=== PATIENT | male | born 1985 | race Asian ===

== ENCOUNTER → 2017-03-26 | Outpatient (CLI) | payer OTHER, MEDICAID ==
--- NOTE | 2017-03-26 11:44 | NOWCEV ---
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 At the time he underwent a fusion from T2-L1 with barb placement. 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 This has led to issues with B medial epicondylitis from continuous self propulsion and lifting his chair into his car , as well as L shoulder pain. He reports that his elbow pain can reach as high as an 8/10 and limits his ability to use his UEs to lift or self propel. He also experiences L back pain from his current seating system. He has to take Percocet to manage the pain to allow for continued function. Doris's current ultra light weight MWC is 5 years old and his current custom molded seating system is 3 years old and both are showing age related deterioration from constant daily use. He was referred to this clinic by his doctor to have recommendations made for the most medically appropriate ultra light weight MWC to replace his current chair. Functional Mobility - Doris is unable to stand or ambulate even with an AD due to his complete T5 paraplegia. Doris is independent with self propulsion of his ultralight weight MWC with custom molded seating to access all MRADLs in the home and to attend work and school in the community on level and unlevel surfaces. He does report increased L shoulder pain with self propelling his chair up inclines, and lateral epicondylitis in both elbows makes it difficult to cheese packer the rims on his wheels to self propel. He reports that his L shoulder frequently pops and is painful when self propelling up hill or up ramps. Doris is independent with squat pivot transfers to/from his MW. He manages is LEs with his UEs. He is able to transition from sit to/from supine via long sit, but is LEs go into significant spasm with the transition and it takes several minutes for the spasms to stop. Any movement causes to legs to go back into spasm. Doris can independently transfer to/from his MWC into his vehicle. He removes the wheels of the chair and then lifts his MWC over his body to place it in the car. Lifting his chair into the car causes an increase in his shoulder and elbow pain due to the weight of the chair and repetition, as Doris reports having to perform this transition minimally 10 times throughout the day in order to attend work and school. Trunk control - Doris is able to sit unsupported, but requires postural support from his custom molded seating system to perform functional tasks or take on any challenges. Motor involvement - Doris has no volitional control of movement below his level of injury at T5. He does have significant spasticity and muscle spasm for which he takes Valium to manage. Despite medication, he continues to have a modified luly of 3+ in his LE extensors, adductors, internal rotators. He also experiences significant spasms that cause his whole body to vibrate. He reports that when he sleeps at night his spasms with flip his legs over to the R which causes increased back pain. Doris has good UE strength, >/=4/5 with shoulder flexion and abduction, and 5/5 into elbow flexion and extension. 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 MMT of L shoulder provokes symptoms. Posture - Doris has a significant pelvic obliquity where is L ilium is lower than his R. Both scapula are significant winged and anteriorly tilted, but the L is more pronounced than the R. He has a flattened thoracic spine from his fusion with barb placement. Skin / Sensation - Doris has no sensation below his level of injury at T5. He does have history of skin breakdown. He reports having a stage 2 pressure ulcer under his L ischial tuberosity 7 years ago. Since that time he has had multiple stage 1 injuries, but reports that he has been able to catch then and stay off the area until they heal, prior to them progressing. He experiences pain in his L midback, B elbows, and L shoulder (as stated above). Endurance - Doris can be up in his chair for >10hours a day. 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 Doris reports that the pain in his L midback increases as the day progresses. He reports frequently having to work until 9 in the evening, at which point, his back pain is significantly exacerbated. The back pain has improved some since padding was added to his seating orthosis, but it has not resolved the issues as the orthosis is worn, and no longer provides appropriate support. For exercise/ recreation, Doris will use his chair on dirt/gravel trails. ADLs - Doris is modified independent with all ADLs from a wheelchair level. He requires use of his ultra light weight MWC and custom molded seating system to access all MRADLs in his home to complete dressing, bathing, meal prep, self care, and cleaning. Cognitive/Social - Doris works for the [employer]. 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 He lives in a fully wheelchair accessible apartment, and drives an adapted vehicle. To manage his demanding schedule, Doris frequently works long hours, not leaving work until 9PM. Current wheelchair - Doris is utilizing an ultra light weight [employer] Crossfire T6. The chair is 5 years old and is showing age related deterioration from heavy daily use which includes off road use of trails, as Doris works for [employer]. The bearing on the front berkley have worn out, despite being replaced, causing Doris to have to use increased force to propel his chair to get the casters to track properly. Doris's LEs come off his foot plate while self propelling due to the vibration of the chair. This sets off his spasticity, despite appropriate set up of the chair. Additionally, the surface of the chair is scratched, pitted, and very worn from heavy use over the past 5 years. He reports that he has to attend high level meetings in his jobs, where the old/worn appearance of his chair reflects poorly. Doris's custom molded Tyro seating system is 3 years old. It is severely worn, and the fabric is tearing throughout the cushion and backrest. His backrest had been causing increased L sided back pain. Increased cushioning was added to improved the angle of the backrest which has helped some to manage the pain, but this is temporary solution. His current aspen seating orthosis is out of warranty, and needs to be remolded and replaced to ensure optimal fit, posture and pain management to promote optimal function. MEDICAL and FUNCTIONAL NEED/OBJECTIVES * To procure an ultra light weight MWC and custom molded seating system to allow Doris to access MRADLs within his home, as well as to provide him with independent access to work and school. PRIMARY FUNCTIONAL LIMITATION (G Code) * Mobility CURRENT STATUS OF PRIMARY FUNCTIONAL LIMITATION (Severity Modifier) * At least 40 percent but less than 60 percent impaired, limited or restricted ( CK) GOAL STATUS OF PRIMARY FUNCTIONAL LIMITATION (Severity Modifier) * At least 40 percent but less than 60 percent impaired, limited or restricted ( CK) DISCHARGE STATUS OF PRIMARY FUNCTIONAL LIMITATION (Severity Modifier) * At least 40 percent but less than 60 percent impaired, limited or restricted ( CK) EQUIPMENT RECOMMENDATIONS AND JUSTIFICATIONS The following recommendations are believed to be the most cost effective way to meet the patients medical and functional needs. * Ultra light weight MWC: Needed to replace Doris's current ultralight weight MWC which is 5 years old and showing age related deterioration from heavy, daily use (as above). Doris is unable to stand or ambulate even with an AD due to his T5 complete paraplegia. Doris cannot utilize a standard weight MWC, as it does not accommodate the appropriate seating system to allow Doris to maintain his balance when self propelling and performing functional tasks from his chair, as he has no muscle activation in his abdominals and has spasticity/ spasms throughout his LEs. Doris cannot utilize a light weight MWC and requires use of an ultra light weight chair for several reasons. The adjustable position of the rear gretchen, which is only available on an ultra light weight chair, place's Doris's shoulders/UEs at a greater advantage to create an efficient stroke for self propulsion. This will place less load on his UEs/ shoulder, where he already struggles with overuse injuries from propulsion, and preserve his ability to self propel independently. The yarn examiner weight of the chair is critical in maintaining Doris's ability to self propel up ramps and unlevel terrain, and again will preserve his ability to continue using a MWC into the future, as he already struggles with chronic overuse injuries in his UE 's and shoulder which limit his ability to propel. Additionally, Doris is not able to lift a light weight MWC into his car independently due to his limited balance and 0/5 abdominal strength due to his paraplegia. He is able to lift an ultra light weight chair into his vehicle independently. A titanium frame is warranted to dampen the vibration of the chair as Doris self propels. This is needed, as the vibration of the chair leads to increased spasm in his LEs and causes his legs to come off the foot plate during propulsion, which leads to safety concerns. Additional suspension cannot be added, as it would increase weight of the chair, and Doris would not be able to lift the chair into his vehicle, and it would lead to increased shoulder and elbow pain/ deterioration from pushing the increased weight with every stroke. An ultra light weight MWC will allow Doris to continue performing all MRADLs independently within his home, allow him to self propel up/down ramps/hills to independently access his home, work, and school, and will decrease the wear/ overuse injury on his shoulders/elbows from continuous daily use, allowing him to remain as a MWC user in the future, preventing transition to a PWC. Doris is able to safely and independently transfer to/from his MWC. * Tyro seating orthosis: Needed to replace Doris's current Tyro seating orthosis which is 3 years old and showing age related deterioration, and no longer providing him the postural support needed to self propel and perform functional activities without pain. A custom molded system is requires to accommodate for Maykels pelvic significant postural asymmetry. An off the shelf or non-custom molded system would not be able to accommodate Doris's pelvic obliquity, and the repercussions would translate up the spine due to his large fusion. The custom mold maintains Doris's trunk in midline and allow him to maintain his balance, self propel and perform functional tasks from his chair. Without the custom mold Doris's trunk would not be maintained in midline which would limit his ability to perform functional tasks and MRADLs from his chair. An appropriate fitted seating orthosis will improved Doris's postural control and manage his L midback pain, ultimately decreasing need for narcotic pain medications for manage. Doris also has a history of skin breakdown. The custom molded seating orthosis is able to offload his L ischial tuberosity, where he is at increased risk for pressure ulcers. This cannot be accomplished without an custom molded seating orthosis. Additionally, Doris has significant spasticity in his LEs, and the custom positioning of the seating orthosis helps to manage his spasms/extensor tone, and prevents his from popping out of his chair when propelling. * Solid seat: Needed to mount the Tyro Seating Orthosis on Doris's chair. * 4" Aluminum soft roll casters: Needed for increased durability and vibration dampening to allow Doris to propel over unlevel surfaces without increasing his tone/spasticity. * Spinergy LX wheels: Needed because the spinergy wheel is yarn examiner weight and more durable than a standard wheel. The yarn examiner weight of the wheel is needed to manage Doris's chronic shoulder injuries that occur as a result of overuse. The yarn examiner weight will decrease the demand on his UEs when self propelling. 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 The increased durability will allow for improved longevity of the wheel. Additionally, Doris has difficulty reaching his fingers between the spokes of his standard wheels when removing the wheel to be placed in the car. This requires him to have to lift his chair to reach behind the wheel to take the wheel off prior to putting it in the car. He reports this motion as causing increased pain in B elbows and L shoulder. With a spinery wheel, her is able to reach between the spokes without lifting the chair an additional time to remove the wheel, thus reducing the repetitive loading of his shoulders. * Pneumatic rear tires: The high pressure of the pneumatic tire is necessary to reduce roll resistance when Doris is self propelling. This will decrease the load on his UEs with each stroke, helping to manage the overuse injuries in his shoulders and elbows that result from self propulsion. * Naturalfit hand rims: The ergonomic cheese packer of the NaturalFIt hand rim is necessary to the reduce the amount that Doris has to cheese packer and improve his efficiency of stroke when self propelling in order to manage his elbow pain from B lateral epicondylitis that he acquired from daily self propulsion. * Hide away under mount wheel locks: Needed to allow Doris to lock his wheels to ensure safety with transfers. The hide away is necessary for hand protection when propelling, and so the wheel locks don't interfere with transfers. 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 The power assist will allow Doris to propel without stressing his shoulder and elbows, preserving his ability to remain a MWC user and not have to transition to a power chair due to overuse and degeneration of his UEs. These recommendations are based on the likelihood that Doris will require the use of an ultra light weight manual wheelchair for all mobility for the rest of his life. If you have any questions or concerns regarding the stated recommendations, please feel free to contact the therapist at . Thank you for your cooperation in obtaining the necessary equipment for this patient. SREE Fuller
== END ==
PROVIDERS: ATTEND Internal Medicine
DX: G82.20 Paraplegia, unspecified (principal); Z99.3 Dependence on wheelchair
CPT/HCPCS: 97162; G8978; G8979; G8980